=== PATIENT | female | born 1970 | race African-American/Black ===

== ENCOUNTER 2023-09-29 23:41 | Emergency (ER) | payer OTHER ==
[2023-09-29 23:49] VITALS: RESP 18; TEMP 98.4; BMI 33.9
[2023-09-30 00:47] LABS: EPI CELLS >36 /uL (0-25.1); HYALINE CASTS 0 /uL (0-3.1); URINE APPEARANCE CLOUDY; URINE BACTERIA 1366 /uL (0-1359); URINE BILIRUBIN NEGATIVE (NEGATIVE); URINE COLOR YELLOW; URINE GLUCOSE (UA) NEGATIVE (NEGATIVE); URINE KETONE NEGATIVE (NEGATIVE); URINE LEUK ESTERASE NEGATIVE (NEGATIVE); URINE NITRITE NEGATIVE (NEGATIVE); URINE PROTEIN TRACE (NEGATIVE); URINE RBC 28 /uL (0-23.9); URINE UROBILINOGEN 0.2 mg/dL (0.2-1.0); URINE WBC 19 /uL (0-25.8)
[2023-09-30 00:57] LABS: BASO % 1.5 % (0-2.0); EOS % 2.8 % (0-4.5); HEMATOCRIT 43.5 % (32.4-45.2); HEMOGLOBIN 14.6 GM/dL (10.7-15.3); LYMPH % 25.4 % (8-40); MCH 27.6 pg (25.7-33.7); MCHC 33.5 g/dl (32.0-36.0); MEAN CELL VOLUME 82.6 fl (80-96); MEAN PLT VOLUME 9.4 fl (7.5-11.1); NEUT % 64.3 % (42.8-82.8); PLATELET COUNT 338 10^3/uL (134-434); RBC 5.27 M/mm3 (3.60-5.2); RDW 14.7 % (11.6-15.6); WHITE BLOOD COUNT 9.2 K/mm3 (4.0-10.0)
[2023-09-30] MEDS ORDERED: KETOROLAC TROMETHAMINE 30 MG/1 ML VIAL ONE (01:08)
[2023-09-30] MEDS: KETOROLAC TROMETHAMINE 30 MG/1 ML VIAL IVPUSH ONE (01:10)
[2023-09-30 01:17] LABS: POTASSIUM 4.2 mmol/L (3.5-5.1)
[2023-09-30 01:19] LABS: ALBUMIN 3.8 g/dl (3.4-5.0); BLOOD UREA NITROGEN 10.9 mg/dL (7-18); CALCIUM 9.1 mg/dL (8.5-10.1); MAGNESIUM 2.6 mg/dL (1.8-2.4)
[2023-09-30 01:22] LABS: CREATININE 0.9 mg/dL (0.55-1.3)
[2023-09-30 01:24] LABS: BILIRUBIN,TOTAL 0.4 mg/dL (0.2-1); TOT PROT 8.4 g/dl (6.4-8.2)
[2023-09-30 04:08] VITALS: BP 144/92; PULSE 73
== END 2023-09-30 05:23 | disposition home or self-care (01) ==
LOC: JER 23:41
PROC: 3E0333Z Introduction of Anti-inflammatory into Peripheral Vein, Percutaneous Approach (ICD-10-PCS; principal; 2023-09-30)
DX: M54.50 Low back pain, unspecified (principal); K56.7 Ileus, unspecified; R10.9 Unspecified abdominal pain
CPT/HCPCS: 36415; 74019-TC-FY; 74177-TC; 80053; 81003; 83690; 83735; 84703; 85025; 87086; 93005; 93010; 99285-25; Q9967

== ENCOUNTER 2025-04-07 06:12 | Day surgery (SDC) | payer OTHER ==
[2025-04-05 12:27] VITALS: BMI 35.5
[2025-04-07] MEDS ORDERED: CEFAZOLIN 2 GM in DEXTROSE 5%-WATER - 100 ML IVPB ONE (07:30)
[2025-04-07] MEDS ORDERED: ACETAMINOPHEN 1000 MG/100 ML BAG IVPB ONE (07:30)
[2025-04-07] MEDS ORDERED: SUCCINYLCHOLINE CHLORIDE 200 MG/10 ML SYRINGE ONE ×3 (07:49→10:34)
[2025-04-07] MEDS ORDERED: PROPOFOL 20 ML ONE ×3 (07:49→10:47)
[2025-04-07] MEDS ORDERED: ROCURONIUM BROMIDE 50 MG/5 ML SYRINGE ONE ×3 (07:49→09:54)
[2025-04-07] MEDS ORDERED: TRANEXAMIC ACID 1000 MG/10 ML VIAL IVPUSH ONE (08:00)
[2025-04-07] MEDS ORDERED: LABETALOL HCL 20 MG/4 ML VIAL ONE (08:31)
[2025-04-07] MEDS ORDERED: SUGAMMADEX SODIUM 200 MG/2 ML VIAL ONE (10:14)
[2025-04-07] MEDS ORDERED: GLYCOPYRROLATE 0.2 MG/1 ML VIAL ONE ×2 (10:39→10:40)
[2025-04-07] MEDS ORDERED: NEOSTIGMINE METHYLSULFATE 0.5 MG/1 ML - 10 ML MDV ONE (10:39)
[2025-04-07] MEDS: LACTATED RINGERS SOLUTION 1,000 ML IV SCH (13:04)
[2025-04-07 16:30] VITALS: TEMP 98.3
[2025-04-07] MEDS ORDERED: ACETAMINOPHEN 500 MG TABLET (FP) ONE (16:57)
[2025-04-07] MEDS: ACETAMINOPHEN 500 MG TABLET (FP) PO ONE (17:07)
[2025-04-07 19:04] VITALS: BP 145/86; PULSE 87; RESP 20
== END 2025-04-07 19:14 | disposition home or self-care (01) ==
LOC: JASU-SURG 06:12
PROVIDERS: ATTEND Specialist
PROC: 8E0WXCZ Robotic Assisted Procedure of Trunk Region (ICD-10-PCS; 2025-04-07)
PROC: 0UT9FZZ Resection of Uterus, Via Natural or Artificial Opening With Percutaneous Endoscopic Assistance (ICD-10-PCS; principal; 2025-04-07 08:00)
PROC: 0UT7FZZ Resection of Bilateral Fallopian Tubes, Via Natural or Artificial Opening With Percutaneous Endoscopic Assistance (ICD-10-PCS; 2025-04-07 08:00)
DX: D25.9 Leiomyoma of uterus, unspecified (principal); D50.0 Iron deficiency anemia secondary to blood loss (chronic)
CPT/HCPCS: 58573; S2900; 88307-TC; 94760